=== PATIENT | female | born 1975 | race Caucasian/White ===

== ENCOUNTER 2017-12-29 14:08 | Observation (INO) | payer OTHER ==
[2017-12-29] MEDS ORDERED: KETOROLAC 30 MG/ML 1 ML VIAL IVP STA (14:21)
[2017-12-29] MEDS ORDERED: SODIUM CHLORIDE 0.9% 1,000 ML IV STA ×2 (14:21)
[2017-12-29] MEDS ORDERED: METOCLOPRAMIDE 5 MG/ML 2 ML VIAL IVP STA (14:21)
[2017-12-29] MEDS ORDERED: PANTOPRAZOLE 40 MG/10 ML VIAL IVP STA (14:21)
[2017-12-29 14:55] LABS: ALT 22 U/L (9-52); AST 17 U/L (14-36); Albumin 4.3 g/dL (3.5-5.0); Alkaline Phosphatase 47 U/L (38-126); Amylase 55 U/L (30-110); Anion Gap 12 mmol/L; Blood Urea Nitrogen 17 mg/dL (7-17); Calcium 9.3 mg/dL (8.4-10.2); Carbon Dioxide 27 mmol/L (22-30); Chloride 103 mmol/L (98-107); Glucose 108 mg/dL (74-99); Lipase 81 U/L (23-300); Potassium 4.3 mmol/L (3.5-5.1); Sodium 142 mmol/L (137-145); Total Bilirubin 0.6 mg/dL (0.2-1.3); Total Protein 6.6 g/dL (6.3-8.2)
[2017-12-29 15:06] LABS: Appearance,Urine Cloudy (Clear); Bilirubin,Urine Negative (Negative); Blood,Urine Negative (Negative); Color,Urine Yellow; Glucose,Urine (UA) Negative (Negative); Ketones,Urine Negative (Negative); Leukocyte Esterase,Urine Negative (Negative); Mucus,Urine Rare /hpf; Nitrite,Urine Negative (Negative); Protein,Urine Negative (Negative); RBC,Urine <1 /hpf (0-5); Specific Gravity,Urine 1.015 (1.001-1.035); Squamous Epithelial Cell,Urine 4 /hpf (0-4); Urobilinogen,Urine <2.0 mg/dL (<2.0); WBC,Urine 1 /hpf (0-5)
[2017-12-29 15:09] LABS: Basophils % (A) 1 %; Eosinophils # (A) 0.1 k/uL (0-0.7); Eosinophils % (A) 2 %; HCT 22.2 % (34.0-46.0); Hypochromasia Marked; Lymphocytes # (A) 0.9 k/uL (1.0-4.8); Lymphocytes % (A) 29 %; MCH 21.5 pg (25.0-35.0); MCHC 29.8 g/dL (31.0-37.0); MCV 72.1 fL (80.0-100.0); Mean Platelet Volume 9.1; Microcytosis Moderate; Monocytes # (A) 0.2 k/uL (0-1.0); Monocytes % (A) 5 %; Neutrophils % (A) 60 %; Platelet Count 267 k/uL (150-450); Poikilocytosis Moderate; RBC 3.09 m/uL (3.80-5.40); WBC 3.3 k/uL (3.8-10.6)
[2017-12-29 15:19] LABS: HGB 6.6 gm/dL (11.4-16.0)
--- NOTE | 2017-12-29 15:30 | XR ---
EXAMINATION TYPE: XR abdomen acute w cxr DATE OF EXAM: 12/29/2017 CLINICAL HISTORY: Abdominal pain with diarrhea and vomiting. TECHNIQUE: Single frontal view of chest is obtained. Supine and upright views of the abdomen are acq uired. COMPARISON: Chest x-ray and abdominal x-ray August 10, 2017. FINDINGS: The lungs are grossly clear without pleural effusion or pneumothorax. Cardiac silhouette size appears within normal limits. Osseous structures are intact. Gas is noted in nondistended stomach and small bowel loops. Gas and fecal material is seen in nondis tended colon and rectum. Scattered pelvic phleboliths are redemonstrated. No pneumoperitoneum is iden tified. No visceromegaly or suspicious calcification is seen. Visualized osseous structures are intac t. IMPRESSION: 1. No acute pulmonary process. 2. Overall nonspecific but likely nonobstructive bowel gas pattern.
--- NOTE | 2017-12-29 15:55 | ED ---
General Adult HPI - General Chief complaint: Abdominal Pain Stated complaint: dizziness/body ches Time Seen by Provider: 12/29/17 14:15 Source: patient Mode of arrival: wheelchair Limitations: no limitations - History of Present Illness Initial comments: This 42-year-old white female presents with a complaint of some diffuse myalgias , dizziness, abdominal pain, and headache. She states that this feels very similar to when she was anemic previously. She states that she was hospitalized last year at [facility] and had a large workup through GI and hematology. She apparently did have endoscopies was also found to be iron deficient. She apparently had an iron transfusion at that time but none since. She states that the oral iron pills do not work for her. She relates that the poultry picker did find that she had a polyp in her colon but no other acute abnormalities were identified. She states that the abdominal pain is more in the midepigastric region. She also complains of significant nausea and vomiting. She's been able to keep fluids down but no food for the last 4 days. She does relate that she currently is on her period and normally does have fairly heavy periods. She denies any other complaints or modifying factors. She denies any fevers, chills, chest pain, or shortness of breath. She does feel weak at times. - Related Data Home Medications Medication Instructions Recorded Confirmed DULoxetine HCL [Cymbalta] 60 mg PO DAILY 06/26/15 12/29/17 Albuterol Inhaler [Ventolin Hfa 2 puff INHALATION RT-Q6H PRN 12/29/17 12/29/17 Inhaler] Omeprazole [PriLOSEC] 20 mg PO DAILY 12/29/17 12/29/17 Ondansetron Odt [Zofran ODT] 4 mg PO BID PRN 12/29/17 12/29/17 Propranolol [Inderal] 10 mg PO BID 12/29/17 12/29/17 traMADol HCl [Ultram] 50 mg PO TID PRN 12/29/17 12/29/17 Allergies Allergy/AdvReac Type Severity Reaction Status Date / Time No Known Allergies Allergy Verified 12/29/17 14:32 Review of Systems ROS Statement: Those systems with pertinent positive or pertinent negative responses have been documented in the HPI. ROS Other: All systems not noted in ROS Statement are negative. Past Medical History Past Medical History: No Reported History Additional Past Medical History / Comment(s): vertigo, iron deficiency History of Any Multi-Drug Resistant Organisms: None Reported Past Surgical History: Section Additional Past Surgical History / Comment(s): kidney stone removed Past Psychological History: Anxiety, Depression Smoking Status: Current every day smoker Past Alcohol Use History: None Reported Past Drug Use History: Marijuana General Exam - General Exam Comments Initial Comments: GENERAL: The patient is well nourished and well hydrated. VITAL SIGNS: Heart rate, blood pressure, respiratory rate reviewed as recorded in nurse's notes. EYES: Pupils are round and reactive. Extraocular movements are intact. No conjunctival / lid redness or swelling. ENT: No external evidence of injury, swelling, or ecchymosis. Airway is patent. Throat is clear. NECK: Nontender. No swelling or evidence of injury. No subcutaneous emphysema. Trachea is midline. No thyroid mass. HEART: Regular rate and rhythm. Good peripheral pulses. LUNGS/CHEST: Breath sounds clear and equal bilaterally. No rales, rhonchi, or wheezes. No ecchymosis, subcutaneous emphysema, or tenderness. ABDOMEN: There is mild tenderness noted in the midepigastric region. No palpable masses or organomegaly. No peritoneal signs. No abdominal wall swelling or ecchymosis. EXTREMITIES: No extremity tenderness. Normal muscle tone and function. No thoracolumbar tenderness. NEUROLOGIC: Sensation is grossly intact. Cranial nerve exam reveals face is symmetrical, tongue is midline, speech is clear. SKIN: No abrasions or ecchymosis is noted. No induration or masses noted. PSYCHIATRIC: Alert and oriented. Appropriate behavior and judgment. Rectal exam: No gross blood identified, good rectal tone, stool noted in rectal vault. Limitations: no limitations Course Vital Signs 12/29/17 12/29/17 12/29/17 14:12 15:38 16:13 Temperature 98.5 F Pulse Rate 94 74 76 Respiratory 18 18 18 Rate Blood Pressure 98/57 90/49 98/61 O2 Sat by Pulse 100 100 99 Oximetry Medical Decision Making - Medical Decision Making The patient was seen and examined. All diagnostics were reviewed. An IV is started and she does receive some Toradol as well as some Protonix intravenously. She states that she is nausea and vomiting as well and received Zofran 8 mg. She has alleviation of the nausea but not the pain and therefore received some Ofirmev. She had an x-ray of the abdomen done which does not show any acute processes per radiology. The laboratory came back showing an anemia with hemoglobin of 6.6. The previous hemoglobin is 11.7 and April 2017. She also has a leukopenia. The remainder of labs are essentially within normal limits. Hemoccult is completed and is negative. Her history, she may have a significant iron deficiency anemia. Other causes are possible as well. It is felt as though she would benefit from admission for further treatment. She certainly is symptomatic with her anemia. Case was discussed with Dr. Watts and he is agreeable to admission. He would like a serum test completed as well. - Lab Data Result diagrams: 12/29/17 14:31 12/29/17 14:31 Lab Results 12/29/17 12/29/17 12/29/17 Range/Units 14:31 14:31 14:31 WBC 3.3 L (3.8-10.6) k/uL RBC 3.09 L (3.80-5.40) m/uL Hgb 6.6 L* (11.4-16.0) gm/dL Hct 22.2 L (34.0-46.0) % MCV 72.1 L (80.0-100.0) fL MCH 21.5 L (25.0-35.0) pg MCHC 29.8 L (31.0-37.0) g/dL RDW 15.0 (11.5-15.5) % Plt Count 267 (150-450) k/uL Neutrophils % 60 % Lymphocytes % 29 % Monocytes % 5 % Eosinophils % 2 % Basophils % 1 % Neutrophils # 2.0 (1.3-7.7) k/uL Lymphocytes # 0.9 L (1.0-4.8) k/uL Monocytes # 0.2 (0-1.0) k/uL Eosinophils # 0.1 (0-0.7) k/uL Basophils # 0.0 (0-0.2) k/uL Hypochromasia Marked Poikilocytosis Moderate Microcytosis Moderate Sodium 142 (137-145) mmol/L Potassium 4.3 (3.5-5.1) mmol/L Chloride 103 (98-107) mmol/L Carbon Dioxide 27 (22-30) mmol/L Anion Gap 12 mmol/L BUN 17 (7-17) mg/dL Creatinine 0.69 (0.52-1.04) mg/dL Est GFR (CKD-EPI)AfAm >90 (>60 ml/min/1.73 sqM) Est GFR (CKD-EPI)NonAf >90 (>60 ml/min/1.73 sqM) Glucose 108 H (74-99) mg/dL Calcium 9.3 (8.4-10.2) mg/dL Total Bilirubin 0.6 (0.2-1.3) mg/dL AST 17 (14-36) U/L ALT 22 (9-52) U/L Alkaline Phosphatase 47 (38-126) U/L Total Protein 6.6 (6.3-8.2) g/dL Albumin 4.3 (3.5-5.0) g/dL Amylase 55 (30-110) U/L Lipase 81 (23-300) U/L Urine Color Urine Appearance (Clear) Urine pH (5.0-8.0) Ur Specific [place] (1.001-1.035) Urine Protein (Negative) Urine Glucose (UA) (Negative) Urine Ketones (Negative) Urine Blood (Negative) Urine Nitrite (Negative) Urine Bilirubin (Negative) Urine Urobilinogen (<2.0) mg/dL Ur Leukocyte Esterase (Negative) Urine RBC (0-5) /hpf Urine WBC (0-5) /hpf Ur Squamous Epith Cells (0-4) /hpf Urine Mucus (None) /hpf Urine HCG, Qual Not Detected (Not Detectd) Stool Occult Blood (Negative) Blood Type Blood Type Confirm Blood Type Recheck Antibody Screen Crossmatch Spec Expiration Date 12/29/17 12/29/17 12/29/17 Range/Units 14:31 14:31 15:42 WBC (3.8-10.6) k/uL RBC (3.80-5.40) m/uL Hgb (11.4-16.0) gm/dL Hct (34.0-46.0) % MCV (80.0-100.0) fL MCH (25.0-35.0) pg MCHC (31.0-37.0) g/dL RDW (11.5-15.5) % Plt Count (150-450) k/uL Neutrophils % % Lymphocytes % % Monocytes % % Eosinophils % % Basophils % % Neutrophils # (1.3-7.7) k/uL Lymphocytes # (1.0-4.8) k/uL Monocytes # (0-1.0) k/uL Eosinophils # (0-0.7) k/uL Basophils # (0-0.2) k/uL Hypochromasia Poikilocytosis Microcytosis Sodium (137-145) mmol/L Potassium (3.5-5.1) mmol/L Chloride (98-107) mmol/L Carbon Dioxide (22-30) mmol/L Anion Gap mmol/L BUN (7-17) mg/dL Creatinine (0.52-1.04) mg/dL Est GFR (CKD-EPI)AfAm (>60 ml/min/1.73 sqM) Est GFR (CKD-EPI)NonAf (>60 ml/min/1.73 sqM) Glucose (74-99) mg/dL Calcium (8.4-10.2) mg/dL Total Bilirubin (0.2-1.3) mg/dL AST (14-36) U/L ALT (9-52) U/L Alkaline Phosphatase (38-126) U/L Total Protein (6.3-8.2) g/dL Albumin (3.5-5.0) g/dL Amylase (30-110) U/L Lipase (23-300) U/L Urine Color Yellow Urine Appearance Cloudy H (Clear) Urine pH 7.0 (5.0-8.0) Ur Specific [place] 1.015 (1.001-1.035) Urine Protein Negative (Negative) Urine Glucose (UA) Negative (Negative) Urine Ketones Negative (Negative) Urine Blood Negative (Negative) Urine Nitrite Negative (Negative) Urine Bilirubin Negative (Negative) Urine Urobilinogen <2.0 (<2.0) mg/dL Ur Leukocyte Esterase Negative (Negative) Urine RBC <1 (0-5) /hpf Urine WBC 1 (0-5) /hpf Ur Squamous Epith Cells 4 (0-4) /hpf Urine Mucus Rare H (None) /hpf Urine HCG, Qual (Not Detectd) Stool Occult Blood Negative (Negative) Blood Type A Positive Blood Type Confirm Blood Type Recheck CABO Indicated Antibody Screen NEGATIVE Crossmatch See Detail Spec Expiration Date 01/01/2018 - 233012/29/17 Range/Units 16:20 WBC (3.8-10.6) k/uL RBC (3.80-5.40) m/uL Hgb (11.4-16.0) gm/dL Hct (34.0-46.0) % MCV (80.0-100.0) fL MCH (25.0-35.0) pg MCHC (31.0-37.0) g/dL RDW (11.5-15.5) % Plt Count (150-450) k/uL Neutrophils % % Lymphocytes % % Monocytes % % Eosinophils % % Basophils % % Neutrophils # (1.3-7.7) k/uL Lymphocytes # (1.0-4.8) k/uL Monocytes # (0-1.0) k/uL Eosinophils # (0-0.7) k/uL Basophils # (0-0.2) k/uL Hypochromasia Poikilocytosis Microcytosis Sodium (137-145) mmol/L Potassium (3.5-5.1) mmol/L Chloride (98-107) mmol/L Carbon Dioxide (22-30) mmol/L Anion Gap mmol/L BUN (7-17) mg/dL Creatinine (0.52-1.04) mg/dL Est GFR (CKD-EPI)AfAm (>60 ml/min/1.73 sqM) Est GFR (CKD-EPI)NonAf (>60 ml/min/1.73 sqM) Glucose (74-99) mg/dL Calcium (8.4-10.2) mg/dL Total Bilirubin (0.2-1.3) mg/dL AST (14-36) U/L ALT (9-52) U/L Alkaline Phosphatase (38-126) U/L Total Protein (6.3-8.2) g/dL Albumin (3.5-5.0) g/dL Amylase (30-110) U/L Lipase (23-300) U/L Urine Color Urine Appearance (Clear) Urine pH (5.0-8.0) Ur Specific [place] (1.001-1.035) Urine Protein (Negative) Urine Glucose (UA) (Negative) Urine Ketones (Negative) Urine Blood (Negative) Urine Nitrite (Negative) Urine Bilirubin (Negative) Urine Urobilinogen (<2.0) mg/dL Ur Leukocyte Esterase (Negative) Urine RBC (0-5) /hpf Urine WBC (0-5) /hpf Ur Squamous Epith Cells (0-4) /hpf Urine Mucus (None) /hpf Urine HCG, Qual (Not Detectd) Stool Occult Blood (Negative) Blood Type Blood Type Confirm A Positive Blood Type Recheck Antibody Screen Crossmatch Spec Expiration Date Disposition Clinical Impression: Myalgia, Abdominal pain, Nausea and vomiting, Weakness, Headache, Symptomatic anemia, Dizziness Disposition: ADMITTED IP TO THIS [facility] Condition: Fair Is patient prescribed a controlled substance at d/c from ED?: No Time of Disposition: 15:55 Decision Date: 12/29/17 Decision Time: 15:55
[2017-12-29] MEDS ORDERED: ACETAMINOPHEN IV (For NPO) 1,000 MG in EMPTY BAG 1 BAG IVPB ONE (16:00)
[2017-12-29] MEDS ORDERED: ACETAMINOPHEN TAB 325 MG TAB PO PRN (16:18)
[2017-12-29] MEDS ORDERED: NALOXONE 0.4 MG/ML 1 ML VIAL IV PRN (16:18)
[2017-12-29] MEDS ORDERED: METOCLOPRAMIDE 5 MG/ML 2 ML VIAL IVP PRN (16:21)
[2017-12-29] MEDS ORDERED: traMADol 50 MG TAB PO PRN (16:22)
[2017-12-29] MEDS ORDERED: ALBUTEROL NEBULIZED 2.5 MG/3 ML INHALATION PRN (16:22)
[2017-12-29 17:27] LABS: Reticulocyte % 1.2 % (0.5-2.0)
[2017-12-29] MEDS: HYDROcodone/APAP 5-325MG 1 EACH TAB PO PRN ×2 (18:31→22:40)
[2017-12-29] MEDS: PROPRANOLOL 10 MG TAB PO SCH (20:28)
[2017-12-29] MEDS: ONDANSETRON 4 MG/2 ML VIAL IVP PRN (20:37)
[2017-12-30] MEDS: HYDROcodone/APAP 5-325MG 1 EACH TAB PO PRN ×3 (03:22→12:09)
--- NOTE | 2017-12-30 04:30 | HP ---
HISTORY AND PHYSICAL DATE OF SERVICE: 12/29/17 CHIEF COMPLAINT: Dizziness and anemia and abdominal pain. HISTORY OF PRESENT ILLNESS: This 42-year-old woman with a past medical history of anemia, history of vertigo, Caesarean section, kidney stone, anxiety, depression being followed by Dr. Mccall in the outpatient setting is complaining of some diffuse myalgias, dizziness, abdominal pain, headache, and the patient came to [facility]. Hemoglobin was found to be 6.6. The patient was admitted to the hospital further evaluation and treatment. The patient is complaining of heavy menstrual periods. 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 The patient has extensive workup including colonoscopy and EGD and as well as capsule enteroscopy. Apparent polyp was detected, the testing was done in [place]. Results are not available at this time, but however, 2 units transfusion arranged at this time. There is no history of fever, rigors, chills. No history of headache, loss of consciousness, seizures. PAST MEDICAL HISTORY: History of kidney stones, history of anemia, anxiety, depression, extensive workup as mentioned earlier. MEDICATIONS: 1. Inderal 10 mg p.o. b.i.d. 2. Ventolin 2 puffs q.6h p.r.n. 3. Prilosec 20 mg daily. 4. Zofran 4 mg b.i.d. p.r.n. 5. Cymbalta 60 mg p.o. daily. 6. Ultram 50 mg p.o. t.i.d. p.r.n. ALLERGIES: None. FAMILY HISTORY: No history of heart disease or strokes family. SOCIAL HISTORY: History of smoking, history of THC. REVIEW OF SYSTEMS: ENT: No diminished hearing or vision. CARDIOVASCULAR: No angina or palpitations. RESPIRATORY: As mentioned earlier. GI mentioned earlier. no dysuria. Nervous system: No numbness, weakness. Allergy/Immunology: As mentioned earlier. Hematology/Oncology: As mentioned earlier. Endocrine no history of diabetes or hypothyroidism. Constitutional: As mentioned earlier. DERMATOLOGY: Negative. RHEUMATOLOGY: Negative. PSYCHIATRIC: As mentioned earlier. PHYSICAL EXAMINATION: The patient is alert and oriented times three. Pulse 76, blood pressure 101/56, respiration 16, temperature 97.8, pulse ox 99% on room air. HEENT: Conjunctivae pale. Oral mucosa moist. Neck is no jugular venous distention. No carotid bruit. No lymph nodes enlargement. Cardiovascular system: S1, S2 muffled. No S3, no S4. Respiratory: Breath sounds diminished in the bases. No rhonchi. No crackles. ABDOMEN: Soft, nontender. No mass palpable. No guarding. No rigidity. Legs no edema. No swelling. Nervous system: Higher functions as mentioned earlier. Moves all 4 limbs. No focal motor or sensory deficits. Lymphatics: No lymph nodes palpable in the neck, axillae or groin. Skin no ulcer, rash or bleeding. LABS: WBC 3.2, hemoglobin 6.6. ASSESSMENT: 1. Anemia acute on chronic possibly genitourinary blood loss. 2. History of menorrhagia. 3. Previous history of anemia and complete Gastroenterology workup. 4. History of kidney stones. 5. History of anxiety, depression. 6. History of nicotine dependence. RECOMMENDATIONS AND DISCUSSION: In this 42-year-old woman who presented with multiple complex medical issues, we will monitor the patient closely. Continue the current medications, management and symptomatic treatment. RECORDS CLERK evaluation and hematology evaluation has been requested. 2 unit transfusion has been arranged. I would recommend repeat labs in the morning and iron studies also requested. The details of the workup from [place] also requested. We will follow the patient closely. Otherwise prognosis guarded because of multiple complex medical issues. A copy of dictation being forwarded to Dr. Mccall who is the primary physician. MMTEODOROL / LISAN: [id number] /
[2017-12-30 07:51] VITALS: BP 111/68; PULSE 68; RESP 16; TEMP 97.3
[2017-12-30] MEDS: PROPRANOLOL 10 MG TAB PO SCH (07:51)
[2017-12-30] MEDS: ONDANSETRON 4 MG/2 ML VIAL IVP PRN (07:52)
[2017-12-30] MEDS ORDERED: PANTOPRAZOLE 40 MG/10 ML VIAL IV SCH (09:00)
[2017-12-30] MEDS ORDERED: ENOXAPARIN 40 MG/0.4 ML SYRINGE SQ SCH (09:00)
[2017-12-30] MEDS ORDERED: DULoxetine HCL 60 MG CAPSULE.DR PO SCH (09:00)
[2017-12-30 09:08] LABS: Anisocytosis Slight; HCT 28.5 % (34.0-46.0); Hypochromasia Marked; MCH 23.9 pg (25.0-35.0); MCHC 31.3 g/dL (31.0-37.0); MCV 76.4 fL (80.0-100.0); Mean Platelet Volume 8.9; Microcytosis Slight; Platelet Count 213 k/uL (150-450); Poikilocytosis Marked; RBC 3.73 m/uL (3.80-5.40); WBC 3.7 k/uL (3.8-10.6)
[2017-12-30 09:10] LABS: HGB 8.9 gm/dL (11.4-16.0)
[2017-12-30] MEDS ORDERED: SODIUM FERRIC GLUCONAT-SUCROSE 125 MG in SODIUM CHLORIDE 0.9% 100 ML IVPB ONE (09:36)
[2017-12-30 11:03] LABS: Basophils # (M) 0.04 k/uL (0-0.2); Eosinophils # (M) 0.04 k/uL (0-0.7); Lymphocytes # (M) 1.96 k/uL (1.0-4.8); Monocytes # (M) 0.19 k/uL (0-1.0); Neutrophils # (M) 1.48 k/uL (1.3-7.7); Neutrophils % (M) 40 %; Nucleated Red Blood Cells 0 /100 WBC (0-0); Total Cells Counted 100
--- NOTE | 2017-12-30 11:05 | P.OBCN ---
History of Present Illness Consult date: 12/30/17 Reason for consult: menorrhagia Chief complaint: anemia, symptomatic History of present illness: This is a 42-year-old white female 3 para 3003 last menstrual period 03/2018 which ended yesterday. Patient presented to the emergency center with a history of lightheadedness and dizziness, along with muscle aches and stomach pain. She was admitted through the emergency room and noted to have a hemoglobin of 6.6, WBC is 3.3, ferritin decreased. Consultation from the gynecologic standpoint has been requested. 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 She states the periods are always been heavy, with clots approximately the size of golf balls. She has a history of HSV dating back to 2003 but no longer has symptomatic outbreaks. She denies gonorrhea or chlamydia. She states she does have pain to deep penetration at the time of intercourse. Past obstetric history significant for sections 3, with a tubal ligation at the time of the third in 2001. All fetuses healthy. Current medications Cymbalta 60 mg daily, omeprazole 20 mg daily. Past medical history is significant for anxiety. Past surgical history kidney stones removed in 2004, C-sections 3 as noted above. Social history patient admits to one half pack per day tobacco for approximate 25 years. She quit all alcohol consumption 7 months ago. She denies marijuana use but has a tattoo of a marijuana leave in her left arm. She is single, unemployed. She denies other illicit drug use. Family history mother passed at age 65 of a cardiac . Her father is alive in his late 60s, patient states she he is a heavy drinker but otherwise healthy. ALLERGIES none known. On exam this is a pleasant white female, 5 foot 6 inches 140 pounds blood pressure 111/68, pulse 68, respirations 16, temperature 97.3, 99% O2 saturation on room air. General physical exam is significant for poor dentition, 5 tattoos , pierced ears nose and belly button. HEENT examination is otherwise negative, no thyromegaly, no cervical lymphadenopathy. The chest is clear to auscultation in all [place] anteriorly and posteriorly. The cardiac exam reveals regular rate and rhythm with no murmur click or rub. Breasts are bilaterally symmetric to inspection with no skin dimpling, nipple discharge, axillary adenopathy, or discernible lesions or masses. Abdomen is soft and nontender, patient is mildly tender in the suprapubic region. No rebound or guarding. Active bowel sounds. No CVA tenderness. Extremities reveal no edema , there are good peripheral pulses. On pelvic exam the cervix is firm to palpation. The uterus is small, mobile, anteverted with no obvious fibroids. Adnexa are negative bilaterally with no ovarian masses or pain. Rectal exam reveals fit Is up by T negative stool as noted in the ER, no obvious masses or tumors. Labs include hemoglobin 6.6 hematocrit 22.2 on admission with a white count of 3.3, platelets 267,000. Patient has received 2 units of packed red blood cells and recent hemoglobin is 8.9, hematocrit 28.5, platelets 213,000, white cells 3.7. Impression: Symptomatic anemia with a history of menorrhagia. Pelvic examination at this time is within normal limits and patient has received 2 units of packed red blood cells. She denies symptomatology at this time. 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 Consideration for D&C will be made pending findings sonographically. Thank you for this consultation, will follow. Review of Systems Constitutional: Reports as per HPI, Reports fatigue, Reports malaise Past Medical History Past Medical History: No Reported History Additional Past Medical History / Comment(s): vertigo, iron deficiency History of Any Multi-Drug Resistant Organisms: None Reported Past Surgical History: Section Additional Past Surgical History / Comment(s): kidney stone removed Past Anesthesia/Blood Transfusion Reactions: No Reported Reaction Past Psychological History: Anxiety, Depression Smoking Status: Current every day smoker Past Alcohol Use History: None Reported Medications and Allergies Home Medications Medication Instructions Recorded Confirmed Type DULoxetine HCL [Cymbalta] 60 mg PO DAILY 06/26/15 12/29/17 History Albuterol Inhaler [Ventolin Hfa 2 puff INHALATION RT-Q6H PRN 12/29/17 12/29/17 History Inhaler] Omeprazole [PriLOSEC] 20 mg PO DAILY 12/29/17 12/29/17 History Ondansetron Odt [Zofran ODT] 4 mg PO BID PRN 12/29/17 12/29/17 History Propranolol [Inderal] 10 mg PO BID 12/29/17 12/29/17 History traMADol HCl [Ultram] 50 mg PO TID PRN 12/29/17 12/29/17 History Allergies Allergy/AdvReac Type Severity Reaction Status Date / Time No Known Allergies Allergy Verified 12/29/17 14:32 Exam - Vital Signs Vital signs: Vital Signs Temp Pulse Pulse Resp BP BP Pulse Ox 12/30/17 07:00 97.3 F L 68 16 111/68 99 12/30/17 01:30 97.4 F L 78 18 106/62 98 12/29/17 23:00 97.7 F 74 18 97/55 100 12/29/17 22:30 97.8 F 76 16 101/56 99 12/29/17 22:15 97.1 F L 81 18 98/51 98 12/29/17 22:10 97.1 F L 76 80 18 101/56 98/51 99 12/29/17 18:42 97.6 F 83 83 16 101/56 110/75 98 12/29/17 18:12 83 12 118/66 12/29/17 18:02 98 F 73 16 122/67 12/29/17 16:13 76 18 98/61 99 12/29/17 15:38 74 18 90/49 100 12/29/17 14:12 98.5 F 94 18 98/57 100 Intake and Output 12/29/17 12/30/17 12/30/17 22:59 06:59 14:59 Intake Total 650 550 Balance 650 550 Intake: Oral 340 240 Blood Product 310 310 Rc As-1 Unit 0 310 [id number] Rc As-1 Unit 310 [id number] Other: # Voids 2 1 Weight 63.503 kg See dictation under HPI please Results Result Diagrams: 12/30/17 08:10 12/29/17 14:31 Abnormal Lab Results - Last 24 Hours (Table) 12/29/17 12/29/17 12/29/17 Range/Units 14:31 14:31 14:31 WBC 3.3 L (3.8-10.6) k/uL RBC 3.09 L (3.80-5.40) m/uL Hgb 6.6 L* (11.4-16.0) gm/dL Hct 22.2 L (34.0-46.0) % MCV 72.1 L (80.0-100.0) fL MCH 21.5 L (25.0-35.0) pg MCHC 29.8 L (31.0-37.0) g/dL RDW (11.5-15.5) % Lymphocytes # 0.9 L (1.0-4.8) k/uL Glucose 108 H (74-99) mg/dL Ferritin (10.0-291.0) ng/mL Urine Appearance Cloudy H (Clear) Urine Mucus Rare H (None) /hpf Crossmatch 12/29/17 12/29/17 12/30/17 Range/Units 14:31 14:31 08:10 WBC 3.7 L (3.8-10.6) k/uL RBC 3.73 L (3.80-5.40) m/uL Hgb 8.9 L D (11.4-16.0) gm/dL Hct 28.5 L (34.0-46.0) % MCV 76.4 L (80.0-100.0) fL MCH 23.9 L (25.0-35.0) pg MCHC (31.0-37.0) g/dL RDW 16.0 H (11.5-15.5) % Lymphocytes # (1.0-4.8) k/uL Glucose (74-99) mg/dL Ferritin 2.3 L (10.0-291.0) ng/mL Urine Appearance (Clear) Urine Mucus (None) /hpf Crossmatch See Detail Assessment and Plan Assessment: Symptomatic anemia, improved after 2 units of packed red blood cells. History of menorrhagia, normal examination of the pelvis at the bedside. Plan: Pelvic ultrasound to assess endometrial thickness. We will proceed with D&C if thickness is noted to be abnormal. Risks and benefits of D&C are described briefly. Time with Patient: Greater than 30
[2017-12-30 11:06] LABS: Target Cells Present
--- NOTE | 2017-12-30 13:02 | US ---
EXAMINATION TYPE: US transvaginal DATE OF EXAM: 12/30/2017 COMPARISON: NONE CLINICAL HISTORY: endometrial thickness. . low iron and hemoglobin, no vaginal bleeding, but heavy c ycles TECHNIQUE: TV. Date of LMP: 12/23/2017 EXAM MEASUREMENTS: Uterus: 9.4 x 5.2 x 5.3 cm Endometrial Stripe: 1.0 cm Right Ovary: 3.5 x 2.6 x 3.0 cm Left Ovary: 2.4 x 1.2 x 1.8 cm 1. Uterus: Retroverted wnl 2. Endometrium: wnl 3. Right Ovary: multiple anechoic area seen, largest appears septated and = 1.5cm 4. Left Ovary: 2 anechoic areas seen, largest = 2.0cm 5. Bilateral Adnexa: mild free fluid in right adnexa 6. Posterior cul-de-sac: mild free fluid IMPRESSION: 1. Endometrial thickness is within normal limits for a premenopausal female. 2. Multiple right ovarian follicles with the most complex appearing 1.5 cm and containing a single th ick septation and additional thin septation. Considering this thick septation short-term follow-up is recommended to ensure resolution in 3 menstrual cycles. 3. Small volume free fluid in the right adnexa and posterior cul-de-sac that may represent sequela of a recently cyst.
--- NOTE | 2017-12-30 14:39 | P.DS ---
Providers Date of admission: 12/29/17 16:18 Attending physician: Toño Watts MD Consults: 12/29/17 16:20 Consult Physician Urgent Consulting Provider: Altaf Woodson Consult Reason/Comments: anemia Do you want consulting provider notified?: Yes 12/29/17 18:28 Consult Physician Routine Consulting Provider: Elenita Mejia Consult Reason/Comments: heavy menstrual cycle, hemoglobin 6.6 Do you want consulting provider notified?: Yes Primary care physician: Stefany Shepherd [facility] Course: Patient was admitted for symptomatically anemia severe lethargy which completed resolved with the blood transfusion, hemoglobin improved from 6.6-8.5 today with 2 units of blood transfusion which is an appropriate response. Patient has menorrhagia because of which the gynecology evaluated the patient and they will follow her as an outpatient pelvic ultrasound did not show any endometrial thickening. Patient has severe iron deficiency anemia with ferritin of around 2.5 will require IV iron transfusions which will be taken care of by hematology clinic. Also discharging her on oral iron supplementation side effects of oral iron supplementation were discussed with the patient and if patient gets constipated can take [id number] medications for constipation. There is no evidence of GI bleed clinically at this time. PHYSICAL EXAMINATION: GENERAL: The patient is alert and oriented x3, not in any acute distress. Well developed, well nourished. HEENT: Pupils are round and equally reacting to light. EOMI. No scleral icterus. No conjunctival pallor. Normocephalic, atraumatic. No pharyngeal erythema. No thyromegaly. CARDIOVASCULAR: S1 and S2 present. No murmurs, rubs, or gallops. PULMONARY: Chest is clear to auscultation, no wheezing or crackles. ABDOMEN: Soft, nontender, nondistended, normoactive bowel sounds. No palpable organomegaly. MUSCULOSKELETAL: No joint swelling or deformity. EXTREMITIES: No cyanosis, clubbing, or pedal edema. NEUROLOGICAL: Gross neurological examination did not reveal any focal deficits. SKIN: No rashes. -Acute on chronic blood loss anemia iron deficiency anemia -Menorrhagia patient will follow-up with gynecology as an outpatient [employer]AD evaluated the patient here -Depression -Nicotine dependence: Counseling was provided Patient Condition at Discharge: Fair Plan - Discharge Summary Discharge Rx Participant: No New Discharge Prescriptions: New Ferrous Sulfate [Feosol] 325 mg PO BID #60 tab No Action DULoxetine HCL [Cymbalta] 60 mg PO DAILY traMADol HCl [Ultram] 50 mg PO TID PRN PRN Reason: Pain Propranolol [Inderal] 10 mg PO BID Omeprazole [PriLOSEC] 20 mg PO DAILY Albuterol Inhaler [Ventolin Hfa Inhaler] 2 puff INHALATION RT-Q6H PRN PRN Reason: Shortness Of Breath Ondansetron Odt [Zofran ODT] 4 mg PO BID PRN PRN Reason: Nausea Discharge Medication List DULoxetine HCL [Cymbalta] 60 mg PO DAILY 06/26/15 [History] Albuterol Inhaler [Ventolin Hfa Inhaler] 2 puff INHALATION RT-Q6H PRN 12/29/17 [ History] Omeprazole [PriLOSEC] 20 mg PO DAILY 12/29/17 [History] Ondansetron Odt [Zofran ODT] 4 mg PO BID PRN 12/29/17 [History] Propranolol [Inderal] 10 mg PO BID 12/29/17 [History] traMADol HCl [Ultram] 50 mg PO TID PRN 12/29/17 [History] Ferrous Sulfate [Feosol] 325 mg PO BID #60 tab 12/30/17 [Rx] Follow up Appointment(s)/Referral(s): Alatf Woodson MD [STAFF PHYSICIAN] - 01/29/18 10:15 am Joao Mccall MD [Primary Care Provider] - 01/06/18 2:00 pm Elenita Mejia MD [STAFF PHYSICIAN] - 1 Week (message left at office. patient to make self appointment. ) Patient Instructions/Handouts: Anemia (DC) Discharge Disposition: HOME SELF-CARE
--- NOTE | 2017-12-30 15:29 | P.CONS ---
History of Present Illness - Reason for Consult Consult date: 12/30/17 iron deficient anemia Requesting physician: Joe Cole - Chief Complaint weakness - History of Present Illness Mrs. Garcia is a very pleasant 42-year-old female who states a long history of anemia (years). Patient has had very heavy menses on a monthly basis wher whole life, she states she can use up to 23 pads for a cycle. Patient was initially diagnosed with iron deficiency last year at [facility]. Patient was provided with parenteral iron and started on oral, which she could not tolerate due to gastrointestinal upset, she also had difficulty following up due to transportation. She is unsure when her last iron infusion was, either last year or in [place] of this year. Patient had a colonoscopy and EGD in September 2016 at [place], she states no abnormalities. Patient does not currently follow with a [employer]. She has had control in the past to control menstral bleeding but, she states this was stopped due to weight gain. Currently, patient feels well, she is status post 2 units of packed red blood cells. She denies fevers, tolerating oral intake, no nausea or vomiting, no shortness of breath, chest pain, palpitations, no other bleeding to report, not currently menstruating. She does get tired and fatigued easily, she denies inability to manage ADLs or IADLs, not requiring any assistance. Review of Systems 10 point ROS as stated in HPI Past Medical History Past Medical History: No Reported History Additional Past Medical History / Comment(s): vertigo, iron deficiency History of Any Multi-Drug Resistant Organisms: None Reported Past Surgical History: Section Additional Past Surgical History / Comment(s): kidney stone removed Past Anesthesia/Blood Transfusion Reactions: No Reported Reaction Past Psychological History: Anxiety, Depression Smoking Status: Current every day smoker Past Alcohol Use History: None Reported, Unable to Obtain Past Drug Use History: Unable to Obtain - Past Family History Mother Family Medical History: No Reported History Medications and Allergies Home Medications Medication Instructions Recorded Confirmed Type DULoxetine HCL [Cymbalta] 60 mg PO DAILY 06/26/15 12/29/17 History Albuterol Inhaler [Ventolin Hfa 2 puff INHALATION RT-Q6H PRN 12/29/17 12/29/17 History Inhaler] Omeprazole [PriLOSEC] 20 mg PO DAILY 12/29/17 12/29/17 History Ondansetron Odt [Zofran ODT] 4 mg PO BID PRN 12/29/17 12/29/17 History Propranolol [Inderal] 10 mg PO BID 12/29/17 12/29/17 History traMADol HCl [Ultram] 50 mg PO TID PRN 12/29/17 12/29/17 History Ferrous Sulfate [Feosol] 325 mg PO BID #60 tab 12/30/17 Rx Allergies Allergy/AdvReac Type Severity Reaction Status Date / Time No Known Allergies Allergy Verified 12/29/17 14:32 Physical Exam Vitals: Vital Signs Temp Pulse Pulse Resp BP BP Pulse Ox 12/30/17 07:00 97.3 F L 68 16 111/68 99 12/30/17 01:30 97.4 F L 78 18 106/62 98 12/29/17 23:00 97.7 F 74 18 97/55 100 12/29/17 22:30 97.8 F 76 16 101/56 99 12/29/17 22:15 97.1 F L 81 18 98/51 98 12/29/17 22:10 97.1 F L 76 80 18 101/56 98/51 99 12/29/17 18:42 97.6 F 83 83 16 101/56 110/75 98 12/29/17 18:12 83 12 118/66 12/29/17 18:02 98 F 73 16 122/67 12/29/17 16:13 76 18 98/61 99 12/29/17 15:38 74 18 90/49 100 Intake and Output 12/30/17 12/30/17 12/30/17 06:59 14:59 22:59 Intake Total 550 Balance 550 Intake: Oral 240 Blood Product 310 Rc As-1 Unit 310 [id number] Other: # Voids 1 3 Weight 63.503 kg - Constitutional General appearance: average body habitus, cooperative, no acute distress - EENT Eyes: anicteric sclerae, EOMI, PERRLA, normal appearance - Neck Neck: no lymphadenopathy - Respiratory Respiratory: bilateral: CTA - Cardiovascular Rhythm: regular Heart sounds: normal: S1, S2 Abnormal Heart Sounds: no systolic murmur, no diastolic murmur, no rub, no S3 Gallop, no S4 Gallop, no click, no other leg Peripheral Edema: bilateral: None - Gastrointestinal General gastrointestinal: no absent bowel sounds, no decreased bowel sounds, no distended, no hepatomegaly, no hyperactive bowel sounds, normal bowel sounds, no organomegaly, no rigid, no scaphoid, soft, no splenomegaly, no tenderness, no umbilical hernia, no ventral hernia - Neurologic Neurologic: CNII-XII intact - Musculoskeletal Musculoskeletal: strength equal bilaterally - Psychiatric Psychiatric: A&O x's 3, appropriate affect, intact judgment & insight Results CBC & Chem 7: 12/30/17 08:10 12/29/17 14:31 Labs: Abnormal Lab Results - Last 24 Hours (Table) 12/29/17 12/29/17 12/29/17 Range/Units 14:31 14:31 14:31 WBC 3.3 L (3.8-10.6) k/uL RBC 3.09 L (3.80-5.40) m/uL Hgb 6.6 L* (11.4-16.0) gm/dL Hct 22.2 L (34.0-46.0) % MCV 72.1 L (80.0-100.0) fL MCH 21.5 L (25.0-35.0) pg MCHC 29.8 L (31.0-37.0) g/dL RDW (11.5-15.5) % Lymphocytes # 0.9 L (1.0-4.8) k/uL Transferrin (204.0-354.0) mg/dL Ferritin 2.3 L (10.0-291.0) ng/mL Crossmatch See Detail 12/29/17 12/30/17 Range/Units 14:31 08:10 WBC 3.7 L (3.8-10.6) k/uL RBC 3.73 L (3.80-5.40) m/uL Hgb 8.9 L D (11.4-16.0) gm/dL Hct 28.5 L (34.0-46.0) % MCV 76.4 L (80.0-100.0) fL MCH 23.9 L (25.0-35.0) pg MCHC (31.0-37.0) g/dL RDW 16.0 H (11.5-15.5) % Lymphocytes # (1.0-4.8) k/uL Transferrin 388.0 H (204.0-354.0) mg/dL Ferritin (10.0-291.0) ng/mL Crossmatch Assessment and Plan (1) Iron deficiency anemia Narrative/Plan: Pt has had GI work up in the last year. Her menses is heavy and the likely cause of her iron deficiency. She has been seen and evaluated by ObGyn. From Hem standpoint pt will be given a STAT dose of parenteral iron, further doses can be administered in the outpatient setting. Advised pt to have more routine follow up so that her anemia can be better managed. She agreed, appt made for follow up. Status: Chronic Priority: Medium Code(s): D50.9 - IRON DEFICIENCY ANEMIA, UNSPECIFIED SNOMED Code(s): 56751260 (2) Symptomatic anemia Narrative/Plan: S/P 2 units, pt feels much better Status: Acute Priority: Medium Code(s): D64.9 - ANEMIA, UNSPECIFIED SNOMED Code(s): 437340507
[2017-12-30 16:32] LABS: Iron Saturation 21.2 (12.00-45.00)
[2017-12-31] MEDS ORDERED: PANTOPRAZOLE 40 MG TABLET PO SCH (07:30)
== END 2017-12-30 14:47 | disposition home or self-care (01) ==
LOC: EC 14:08 → 4MS4W 16:18 → INTOOBSV 16:18 → UNDODISIN 12-30 14:47
PROVIDERS: ADMIT Internal Medicine; ATTEND Internal Medicine
PROC: 30233N1 Transfusion of Nonautologous Red Blood Cells into Peripheral Vein, Percutaneous Approach (ICD-10-PCS; principal; 2017-12-29)
DX: D50.9 Iron deficiency anemia, unspecified (principal); D62 Acute posthemorrhagic anemia; R10.13 Epigastric pain; R11.2 Nausea with vomiting, unspecified; D72.819 Decreased white blood cell count, unspecified; N92.0 Excessive and frequent menstruation with regular cycle; F32.9 Major depressive disorder, single episode, unspecified; F41.9 Anxiety disorder, unspecified; F17.210 Nicotine dependence, cigarettes, uncomplicated; Z87.442 Personal history of urinary calculi; Z86.19 Personal history of other infectious and parasitic diseases; Z79.899 Other long term (current) drug therapy; Z82.49 Family history of ischemic heart disease and other diseases of the circulatory system
CPT/HCPCS: 36430; 96376; 96361 ×3; 96365; 96375 ×2; 99285; 36415; 86900; 86901; 83921; 80053; 82607; 82728; 82150; 83540; 83550; 83690; 85025 ×2; 85045; 86850; 86920; 82272; 81001; 81025; 84703; 83090; 84466; 74022; 76830; G0378 ×2; P9016; J2765; J2405 ×2; J1885; J2916; J0131; C9113 ×2; 96374

== ENCOUNTER 2018-02-24 06:20 | Day surgery (SDC) | payer OTHER ==
[2018-02-16 13:17] VITALS: BMI 21.6
[~2018-02-24 06:20] MED LIST: DEXAMETHASONE SOD PHOSPHATE 10 MG/ML 1 ML VIAL IV ONE; HYDROmorphone 0.5 MG/0.5 ML SYRINGE IVP PRN; LACTATED RINGERS 1,000 ML IV SCH; MIDAZOLAM 2 MG/2 ML VIAL IV PRN; ONDANSETRON 4 MG/2 ML VIAL IVP ONE; Pre Op ABX Message 1 EACH MISC MISCELLANE ONE
[2018-02-24] MEDS ORDERED: LACTATED RINGERS 1,000 ML IV ONE (06:40)
[2018-02-24] MEDS ORDERED: LIDOCAINE 1% 20 ML VIAL (10MG/ML) FOR IV START INTRADERMA ONE (06:50)
[2018-02-24] MEDS ORDERED: fentaNYL (PF) 50 MCG/ML 2 ML AMP ONE (07:39)
[2018-02-24] MEDS ORDERED: PROPOFOL 10 MG/ML 20 ML VIAL IV ONE (07:39)
[2018-02-24] MEDS ORDERED: KETOROLAC 30 MG/ML 1 ML VIAL ONE (07:39)
[2018-02-24] MEDS ORDERED: MIDAZOLAM 2 MG/2 ML VIAL ONE (07:39)
[2018-02-24] MEDS ORDERED: LIDOCAINE 1% INJ 10MG/ML (20 ML MDV) ONE (07:39)
--- NOTE | 2018-02-24 08:00 | P.OP ---
Date of Procedure: 02/24/18 Preoperative Diagnosis: Menorrhagia, anemia Postoperative Diagnosis: Same Procedure(s) Performed: Hysteroscopy, NovaSure endometrial ablation Anesthesia: TRA Surgeon: Elenita Mejia Expediter Clerk #1: Stated None Estimated Blood Loss (ml): 5 IV fluids (ml): 400 Urine output (ml): 50 Pathology: none sent Condition: stable Disposition: PACU Operative Findings: Essentially negative appearing uterine cavity. Description of Procedure: Patient is brought to the operating suite where a general anesthetic is administered without difficulty. She's placed in the dorsal lithotomy position. The cervix, vagina, perineal bodies are all prepped and draped in usual sterile fashion. The appropriate timeout is performed. Urine hCG is negative. Weighted speculum was placed into the vagina. Bladder is drained for approximately 50 mL of clear yellow urine. Anterior lip of the cervix is grasped with a double-tooth tenaculum. Uterus sounds to a depth of 9 cm in the retroverted position. Cervix is gently and systematically dilated using Hanks dilators. The hysteroscope was introduced and the cavity is distended with sterile saline. The cavity is inspected, no fibroids polyps tumors or other defects are appreciated. Hysteroscope was removed. NovaSure wand is then placed into the cavity properly seated and calibrated. It is enabled. The machine is then set on, uterine width of 4.3 cm, length of 5.5 cm. 410 seconds with a power of 130 W the procedure is carried out. When it is completed, the wand is reduced and removed. Hysteroscope was once again placed and the cavity is distended. It appears to be uniformly blanched. All instrumentation is removed. Cervix is clean and dry. Toradol is given prior to leaving the operative suite. All sponge needle and enhancement counts are correct. Patient is brought back to the recovery room in very good condition with stable vital signs including 100% O2 saturation, pulse of 72, blood pressure 100/50. She will follow-up with me in the office in 2 weeks.
[2018-02-24 08:09] VITALS: TEMP 99
[2018-02-24 08:22] VITALS: RESP 16
[2018-02-24 09:12] VITALS: BP 118/71; PULSE 80
== END 2018-02-24 09:47 | disposition home or self-care (01) ==
LOC: OR 06:20
PROVIDERS: ATTEND Obstetrics & Gynecology
DX: N92.0 Excessive and frequent menstruation with regular cycle (principal); D64.9 Anemia, unspecified; F41.9 Anxiety disorder, unspecified; K21.9 Gastro-esophageal reflux disease without esophagitis; F17.210 Nicotine dependence, cigarettes, uncomplicated; Z79.899 Other long term (current) drug therapy; Z79.891 Long term (current) use of opiate analgesic; Z98.51 Tubal ligation status
CPT/HCPCS: 81025; 58563; J2250; J1100; J2405; J2001; J3010; J1885; J2704

== ENCOUNTER 2022-07-22 22:13 | Emergency (ER) | payer OTHER ==
--- NOTE | 2022-07-23 00:42 | ED ---
General Adult HPI - General Chief complaint: Skin/Abscess/Foreign Body Stated complaint: Extremity Pain, Dizziness Time Seen by Provider: 07/23/22 00:19 Source: patient, RN notes reviewed Mode of arrival: ambulatory Limitations: no limitations - History of Present Illness Initial comments: Patient presents to the emergency department complaining of generalized body aches, states that her skin feels sensitive. Patient is also had a cough, subjective fever, a bit of a hoarse voice and a mild runny nose. No known exposures. No headache, no fever or chills, no changes in vision or hearing, no sore throat or difficulty with speech, no neck pain, no chest pain or shortness of breath, no abdominal pain, no nausea or vomiting, no changes in urination or bowel movements, no numbness or tingling, no extremity pain, no skin rashes or lesions. Past medical, surgical, social, and family history reviewed. - Related Data Home Medications Medication Instructions Recorded Confirmed DULoxetine HCL [Cymbalta] 60 mg PO DAILY 06/26/15 02/16/18 Omeprazole [PriLOSEC] 20 mg PO DAILY 12/29/17 02/16/18 Ondansetron Odt [Zofran ODT] 4 mg PO BID PRN 12/29/17 02/16/18 traMADol HCl [Ultram] 50 mg PO TID PRN 12/29/17 02/16/18 Allergies Allergy/AdvReac Type Severity Reaction Status Date / Time No Known Allergies Allergy Verified 02/16/18 13:05 Review of Systems ROS Statement: Those systems with pertinent positive or pertinent negative responses have been documented in the HPI. ROS Other: All systems not noted in ROS Statement are negative. Past Medical History Past Medical History: GERD/Reflux Additional Past Medical History / Comment(s): mennorghia, iron deficiency, STATES CHRONIC PAIN History of Any Multi-Drug Resistant Organisms: None Reported Past Surgical History: Section Additional Past Surgical History / Comment(s): kidney stone removed Past Anesthesia/Blood Transfusion Reactions: No Reported Reaction Additional Past Anesthesia/Blood Transfusion Reaction / Comment(s): BLOOD TRANSFUSION WITH NO REACTION Past Psychological History: Anxiety, Depression Past Alcohol Use History: None Reported Past Drug Use History: None Reported - Past Family History Mother Family Medical History: Deep Vein Thrombosis (DVT) General Exam - General Exam Comments Initial Comments: Patient does not appear to be ill or toxic. No skin rash or lesions. Limitations: no limitations General appearance: alert, in no apparent distress Head exam: Present: atraumatic, normocephalic, normal inspection Eye exam: Present: normal appearance, PERRL, EOMI. Absent: scleral icterus, conjunctival injection, periorbital swelling ENT exam: Present: normal exam, mucous membranes moist Neck exam: Present: normal inspection. Absent: tenderness, meningismus, lymphadenopathy Respiratory exam: Present: normal lung sounds bilaterally. Absent: respiratory distress, wheezes, rales, rhonchi, stridor Cardiovascular Exam: Present: regular rate, normal rhythm, normal heart sounds. Absent: systolic murmur, diastolic murmur, rubs, gallop, clicks GI/Abdominal exam: Present: soft, normal bowel sounds. Absent: distended, tenderness, guarding, rebound, rigid Extremities exam: Present: normal inspection, full ROM, normal capillary refill. Absent: tenderness, pedal edema, joint swelling, calf tenderness Back exam: Present: normal inspection Neurological exam: Present: alert, oriented X3, CN II-XII intact Psychiatric exam: Present: normal affect, normal mood Skin exam: Present: warm, dry, intact, normal color. Absent: rash Course Vital Signs 07/22/22 22:15 Temperature 97.8 F Pulse Rate 95 Respiratory 20 Rate Blood Pressure 136/78 O2 Sat by Pulse 95 Oximetry - Reevaluation(s) Reevaluation #1: 07/23/22 01:56 Medical record is reviewed Symptoms are improved here in the emergency department Patient is informed of results and questions answered Patient in no distress Medical Decision Making - Medical Decision Making Patient reevaluated prior to discharge and is resting comfortably in bed. There is no evidence of respiratory distress. Patient does not have a cough. We discussed COVID-19 in detail with the patient tested positive. Quarantine measures discussed in detail. Disease course discussed. She does not appear to have any other complications of this disease. I did consider corticosteroids however the patient has no respiratory distress or respiratory symptomology. We'll forego this at this time. Patient was told to return to the ER for any signs or symptoms worsen. Told to return immediately if any other problems arise. All questions answered. T reatment plan discussed. Patient in agreement Every effort has been made to ensure accuracy of this dictation. However, due to the limitations of electronic medical records and dictation devices, errors in charting still occur. Supervising physician is Dr. King - Lab Data Result diagrams: 07/23/22 01:01 07/23/22 01:01 Lab Results 07/23/22 07/23/22 07/23/22 Range/Units 00:48 00:48 01:01 WBC 3.9 (3.8-10.6) k/uL RBC 3.77 L (3.80-5.40) m/uL Hgb 10.4 L (11.4-16.0) gm/dL Hct 31.4 L (34.0-46.0) % MCV 83.2 (80.0-100.0) fL MCH 27.7 (25.0-35.0) pg MCHC 33.3 (31.0-37.0) g/dL RDW 14.7 (11.5-15.5) % Plt Count 218 (150-450) k/uL MPV 8.3 Neutrophils % 59 % Lymphocytes % 22 % Monocytes % 14 % Eosinophils % 1 % Basophils % 1 % Neutrophils # 2.3 (1.3-7.7) k/uL Lymphocytes # 0.8 L (1.0-4.8) k/uL Monocytes # 0.5 (0-1.0) k/uL Eosinophils # 0.0 (0-0.7) k/uL Basophils # 0.0 (0-0.2) k/uL Sodium (137-145) mmol/L Potassium (3.5-5.1) mmol/L Chloride (98-107) mmol/L Carbon Dioxide (22-30) mmol/L Anion Gap mmol/L BUN (7-17) mg/dL Creatinine (0.52-1.04) mg/dL Est GFR (CKD-EPI)AfAm (>60 ml/min/1.73 sqM) Est GFR (CKD-EPI)NonAf (>60 ml/min/1.73 sqM) Glucose (74-99) mg/dL Calcium (8.4-10.2) mg/dL Coronavirus (PCR) Detected A (Not Detectd) Influenza Type A RNA Not Detected (Not Detectd) Influenza Type B (PCR) Not Detected (Not Detectd) 12/06/22 Range/Units 01:01 WBC (3.8-10.6) k/uL RBC (3.80-5.40) m/uL Hgb (11.4-16.0) gm/dL Hct (34.0-46.0) % MCV (80.0-100.0) fL MCH (25.0-35.0) pg MCHC (31.0-37.0) g/dL RDW (11.5-15.5) % Plt Count (150-450) k/uL MPV Neutrophils % % Lymphocytes % % Monocytes % % Eosinophils % % Basophils % % Neutrophils # (1.3-7.7) k/uL Lymphocytes # (1.0-4.8) k/uL Monocytes # (0-1.0) k/uL Eosinophils # (0-0.7) k/uL Basophils # (0-0.2) k/uL Sodium 134 L (137-145) mmol/L Potassium 4.0 (3.5-5.1) mmol/L Chloride 104 (98-107) mmol/L Carbon Dioxide 24 (22-30) mmol/L Anion Gap 6 mmol/L BUN 13 (7-17) mg/dL Creatinine 0.66 (0.52-1.04) mg/dL Est GFR (CKD-EPI)AfAm >90 (>60 ml/min/1.73 sqM) Est GFR (CKD-EPI)NonAf >90 (>60 ml/min/1.73 sqM) Glucose 89 (74-99) mg/dL Calcium 8.8 (8.4-10.2) mg/dL Coronavirus (PCR) (Not Detectd) Influenza Type A RNA (Not Detectd) Influenza Type B (PCR) (Not Detectd) Disposition Clinical Impression: COVID-19, Chronic anemia Disposition: HOME SELF-CARE Condition: Good Instructions (If sedation given, give patient instructions): COVID-19 (Coronavirus Disease 2019) (ED) Additional Instructions: SELF QUARANTINE DISCHARGE: As you are at risk for symptoms due to coronavirus, please stay home and stay away from others as much as possible. Please maintain social distance of 6 feet if possible. You should not return to work until at least 3 days (72 hours) have passed since recovery of symptoms. This defined as resolution of fever without the use of fever reducing medicines and improvement in respiratory symptoms (e.g,, cough, shortness of breath) Isolation can end at least 5 days after symptom onset and after fever ends for 24 hours (without the use of fever-reducing medication) and symptoms are improving, if these people can continue to properly wear a well-fitted mask around others for 5 more days after the 5-day isolation period. If you're still having symptoms at the end of 5 day period, isolate for an additional 5 days. More information about what to do if you are sick can be found on the CDC website at https://www.cdc.gov/coronavirus/2019-ncov/dz-lki-txx-sick/ffspi-hbgv-kkva.html Expect the symptoms to last for 7-14 days from onset. Use acetaminophen (Tylenol) as needed for discomfort. You can take a maximum of 1 gram every 6 hours for discomfort, with your total dose in 24 hours not exceeding 4 grams. Be sure to maintain hydration. Drink continuous water and/or items high in vitamin C, such as orange juice and/or lemonade. Unless you have high blood pressure, you may consider Sudafed (which is [id number]) for nasal congestion. I would suggest that a short acting Sudafed rather than the 24 hour Sudafed. For a cough you may take Mucinex or Robitussin. Also consider the use of Vicks Vapor Rub or your chest when you sleep. Use a humidifier that is cleaned frequently, in the bedroom at night. For Nausea /Vomiting/Diarrhea associated with your Illness: o Small frequent sips of room temperature liquids. o Diet: [place] Foods - If you are still experiencing discomfort and/or nausea please slowly advancing your diet using the BRAT Diet = bananas, rice, apples/apple sauce, toast. o With diarrhea avoid any dairy for 48 hours after symptoms resolved. o Continue with activity as tolerated. If your symptoms do get worse and you believe that the upper respiratory infection has developed into something else, such as pneumonia or severe dehydration, please return to the emergency department or follow-up with your primary care. But expect to be symptomatic for the days as indicated above Is patient prescribed a controlled substance at d/c from ED?: No Referrals: Nonstaff,Physician [Primary Care Provider] - 1-2 days Time of Disposition: 01:56
[2022-07-23 01:34] LABS: Basophils % (A) 1 %; Eosinophils % (A) 1 %; HCT 31.4 % (34.0-46.0); HGB 10.4 gm/dL (11.4-16.0); Lymphocytes # (A) 0.8 k/uL (1.0-4.8); Lymphocytes % (A) 22 %; MCH 27.7 pg (25.0-35.0); MCHC 33.3 g/dL (31.0-37.0); MCV 83.2 fL (80.0-100.0); Mean Platelet Volume 8.3; Monocytes # (A) 0.5 k/uL (0-1.0); Monocytes % (A) 14 %; Neutrophils # (A) 2.3 k/uL (1.3-7.7); Neutrophils % (A) 59 %; Platelet Count 218 k/uL (150-450); RBC 3.77 m/uL (3.80-5.40); RDW 14.7 % (11.5-15.5); WBC 3.9 k/uL (3.8-10.6)
[2022-07-23 01:38] LABS: African American GFR (CKD) >90 (>60 ml/min/1.73 sqM); Anion Gap 6 mmol/L; Blood Urea Nitrogen 13 mg/dL (7-17); Calcium 8.8 mg/dL (8.4-10.2); Carbon Dioxide 24 mmol/L (22-30); Chloride 104 mmol/L (98-107); Glucose 89 mg/dL (74-99); Non-African American GFR(CKD) >90 (>60 ml/min/1.73 sqM); Sodium 134 mmol/L (137-145)
[2022-07-23 02:08] VITALS: BP 136/87; PULSE 92; RESP 16; TEMP 99.9
== END 2022-07-23 02:16 | disposition home or self-care (01) ==
LOC: EC 22:13
DX: U07.1 COVID-19 (principal); D64.9 Anemia, unspecified; K21.9 Gastro-esophageal reflux disease without esophagitis; F41.9 Anxiety disorder, unspecified; F32.A Depression, unspecified; Z79.899 Other long term (current) drug therapy
CPT/HCPCS: 36415; 80048; 85025; 87502; 87635; 99284

== ENCOUNTER 2023-04-15 14:47 | Emergency (ER) | payer OTHER ==
[2023-04-15 15:01] VITALS: RESP 18; TEMP 98.2
--- NOTE | 2023-04-15 15:02 | ED ---
General Adult HPI - General Source: patient, RN notes reviewed Mode of arrival: ambulatory Limitations: no limitations <Casey Navarrete - Last Filed: 04/15/23 15:00> - General Source: patient, RN notes reviewed Mode of arrival: ambulatory Limitations: no limitations - History of Present Illness MD Complaint: Abdominal pain <Mikala De Leon - Last Filed: 04/15/23 22:06> - General Chief complaint: Abdominal Pain Stated complaint: abd and back pain Time Seen by Provider: 04/15/23 15:01 - History of Present Illness Initial comments: 47 show female presents emergency Department chief complaint of left-sided abdominal, flank pain. Patient states that she has been seen at Hospital from urgent care and with [facility] has been told that she has ovarian cyst, uterine fibroid, uterine inflammation she is scheduled for a biopsy and repeat ultrasound in May. She states she cannot tolerate the pain any longer. (Casey Navarrete) When I went to evaluate the patient, states that she had been taking [place], 7.5 mg for management of her pain, however she is now out of this and it was not particularly effective. Her PEARL STRINGER is Dr. Salas. She is upset with how slow things are moving and is hoping to have something done quicker. She did recently have a CT scan as well, demonstrating the uterine fibroids. Pain is in the center of the lower abdomen and lower back without localization to any particular side. (Mikala De Leon) - Related Data Home Medications Medication Instructions Recorded Confirmed DULoxetine HCL [Cymbalta] 60 mg PO DAILY 06/26/15 02/16/18 Omeprazole [PriLOSEC] 20 mg PO DAILY 12/29/17 02/16/18 Ondansetron Odt [Zofran ODT] 4 mg PO BID PRN 12/29/17 02/16/18 traMADol HCl [Ultram] 50 mg PO TID PRN 12/29/17 02/16/18 Previous Rx's Medication Instructions Recorded Ketorolac [Toradol] 10 mg PO Q6HR PRN #15 tab 04/15/23 Lidocaine 5% Patch [Lidoderm 5% 1 patch TOPICAL DAILY PRN #30 patch 04/15/23 Patch] oxyCODONE-APAP 7.5-325MG [Percocet 1 tab PO Q6HR PRN 3 Days #12 tab 04/15/23 7.5-325 mg] Allergies Allergy/AdvReac Type Severity Reaction Status Date / Time No Known Allergies Allergy Verified 04/15/23 15:01 Review of Systems ROS Other: All systems not noted in ROS Statement are negative. <RosalbaCasey Hilario - Last Filed: 04/15/23 15:00> ROS Other: All systems not noted in ROS Statement are negative. <Mikala De Leon - Last Filed: 04/15/23 22:06> ROS Statement: Those systems with pertinent positive or pertinent negative responses have been documented in the HPI. Past Medical History Past Medical History: GERD/Reflux Additional Past Medical History / Comment(s): mennorghia, iron deficiency, STATES CHRONIC PAIN History of Any Multi-Drug Resistant Organisms: None Reported Past Surgical History: Section Additional Past Surgical History / Comment(s): kidney stone removed Past Anesthesia/Blood Transfusion Reactions: No Reported Reaction Additional Past Anesthesia/Blood Transfusion Reaction / Comment(s): BLOOD TRANSFUSION WITH NO REACTION Past Psychological History: Anxiety, Depression Past Alcohol Use History: None Reported Past Drug Use History: None Reported - Past Family History Mother Family Medical History: Deep Vein Thrombosis (DVT) <Casey Navarrete - Last Filed: 04/15/23 15:00> General Exam <Casey Navarrete - Last Filed: 04/15/23 15:00> Limitations: no limitations General appearance: alert, in no apparent distress Head exam: Present: atraumatic, normocephalic, normal inspection Respiratory exam: Present: normal lung sounds bilaterally. Absent: respiratory distress, wheezes, rales, rhonchi, stridor Cardiovascular Exam: Present: regular rate, normal rhythm, normal heart sounds. Absent: systolic murmur, diastolic murmur, rubs, gallop, clicks GI/Abdominal exam: Present: soft, tenderness (suprapubic and lower abdominal area), normal bowel sounds. Absent: distended, guarding, rebound, rigid Neurological exam: Present: alert, oriented X3, CN II-XII intact Psychiatric exam: Present: normal affect, normal mood Skin exam: Present: warm, dry, intact, normal color. Absent: rash <Mikala De Leon - Last Filed: 04/15/23 22:06> - General Exam Comments Initial Comments: Visual Physical Exam Vital signs reviewed General: Well-appearing, nontoxic, no acute distress. Head: Normocephalic, atraumatic Eyes: PERRLA, EOMI ENT: Airway patent Chest: Nonlabored breathing Skin: No visual rash, normal skin tone Neuro: Alert and oriented 3 Musculoskeletal: No gross abnormalities (Casey Navarrete) Course Vital Signs 04/15/23 04/15/23 04/15/23 14:58 19:01 21:35 Temperature 98.2 F 98.2 F 98.2 F Pulse Rate 89 80 82 Respiratory 18 18 18 Rate Blood Pressure 111/71 116/68 137/81 O2 Sat by Pulse 100 100 100 Oximetry Medical Decision Making <Casey Navarrete - Last Filed: 04/15/23 15:00> - Lab Data Result diagrams: 04/15/23 15:24 04/15/23 15:24 - Radiology Data Radiology results: report reviewed, image reviewed <Mikala De Leon - Last Filed: 04/15/23 22:06> - Medical Decision Making I performed a quick note portion of this chart signed Casey Navarrete PA-C (Casey Navarrete) This is a 47-year-old female who presents to the emergency department for lower abdominal pain. Was pt. sent in by a medical professional or institution? @ -No Did you speak to anyone other than the patient for history? @ -No Did you review nursing and triage notes? @ -Yes, and I agree, it is accurate with regards to the patient's symptoms. Were old charts reviewed? @ -No Differential Diagnosis? @ -Differential Abdominal Pain Women: Appendicitis, Cholecystitis, diverticulosis, ischemic bowel, pancreatitis, hepatitis, UTI, gastroenteritis, AAA, incarcerated hernia, bowel obstruction, constipation, inflammatory bowel, hepatitis, peptic ulcer disease, splenic infarction, perforated viscus, vulvitis, ovarian torsion, PID, kidney stone, placenta abruption, this is not meant to be an all-inclusive list EKG interpreted by me (3pts min.)? @ -Not obtained X-rays interpreted by me (1pt min.)? @ -Not obtained CT interpreted by me (1pt min.)? @ -Not obtained U/S interpreted by me (1pt. min.)? @ -Not interpreted by me What testing was considered but not performed? (CT, X-rays, U/S, labs)? Why? @ -None What meds were considered but not given? Why? @ -None Did you discuss the management of the patient with other professionals? @ -No Did you reconcile home meds? @ -No Was smoking cessation discussed for >3mins.? @ -No Was critical care preformed (if so, how long)? @ -No Were there social determinants of health that impacted care today? How? (Homelessness, low income, unemployed, alcoholism, drug addiction, transportation, low edu. Level, literacy, decrease access to med. care, custodial, rehab)? @ -No Was there de-escalation of care discussed even if they declined? (Discuss DNR or withdrawal of care, Hospice)? @ -No What co-morbidities impacted this encounter? (DM, HTN, Smoking, COPD, CAD, Cancer, CVA, Hep., AIDS, mental health diagnosis, sleep apnea, morbid obesity)? @ -None Was patient admitted / discharged? @ -Discharged. Lab work obtained revealing a slightly low hemoglobin, consistent with the patient's known history of anemia. Lab work was otherwise nonactionable. Urinalysis negative for signs of infection. Transvaginal ultrasound obtained revealing probable leiomyomas, however other etiologies cannot be excluded. Findings reviewed with the patient, who is aware of these results and states that this has been consistent with prior imaging. Advised that there is not an urgent indication to admit her to have this done sooner, and we will have to continue managing her symptoms on an outpatient basis, until her [facility]INGER can schedule her for the biopsy. Her pain was controlled in the emergency department, and she was given a prescription for Toradol, oxycodone, and lidocaine patches with dosing instructions reviewed. Advised she take the oxycodone sparingly when her pain is the most severe and avoid driving or operating machinery when taking it. Patient is instructed to take the Toradol with Tylenol if needed and avoid any other tisl-[id number]-vjyedjk anti-inflammatories such as ibuprofen with the Toradol. Undiagnosed new problem with uncertain prognosis? @ -None Drug Therapy requiring intensive monitoring for toxicity (Heparin, Nitro, Insulin, Cardizem)? @ -None Were any procedures done? @ -None Diagnosis/symptom? @ -Pelvic pain, uterine fibroid Acute, or Chronic, or Acute on Chronic? @ -Acute Uncomplicated (without systemic symptoms) or Complicated (systemic symptoms)? @ -Uncomplicated Side effects of treatment? @ -None Exacerbation, Progression, or Severe Exacerbation] @ -Not applicable Poses a threat to life or bodily function? @ -No Return precautions reviewed in depth, the patient is instructed to return to the emergency department with any new, worsening, or concerning symptoms. Patient verbalized understanding. This case was discussed in detail with the attending ED physician, Dr. Freeman. Presentation, findings, and treatment plan discussed in detail as well. (Mikala De Leon) - Lab Data Lab Results 04/15/23 04/15/23 04/15/23 Range/Units 15:24 15:24 15:24 WBC 6.3 (3.8-10.6) k/uL RBC 3.84 (3.80-5.40) m/uL Hgb 9.0 L (11.4-16.0) gm/dL Hct 29.6 L (34.0-46.0) % MCV 77.0 L (80.0-100.0) fL MCH 23.5 L (25.0-35.0) pg MCHC 30.5 L (31.0-37.0) g/dL RDW 19.6 H (11.5-15.5) % Plt Count 255 (150-450) k/uL MPV 7.5 Neutrophils % 73 % Lymphocytes % 18 % Monocytes % 5 % Eosinophils % 2 % Basophils % 0 % Neutrophils # 4.6 (1.3-7.7) k/uL Lymphocytes # 1.1 (1.0-4.8) k/uL Monocytes # 0.3 (0-1.0) k/uL Eosinophils # 0.1 (0-0.7) k/uL Basophils # 0.0 (0-0.2) k/uL Hypochromasia Marked Anisocytosis Slight Microcytosis Moderate Sodium 136 L (137-145) mmol/L Potassium 4.6 (3.5-5.1) mmol/L Chloride 106 (98-107) mmol/L Carbon Dioxide 22 (22-30) mmol/L Anion Gap 8 mmol/L BUN 19 H (7-17) mg/dL Creatinine 0.71 (0.52-1.04) mg/dL Est GFR (CKD-EPI)AfAm >90 (>60 ml/min/1.73 sqM) Est GFR (CKD-EPI)NonAf >90 (>60 ml/min/1.73 sqM) Glucose 98 (74-99) mg/dL Calcium 8.9 (8.4-10.2) mg/dL Total Bilirubin 0.7 (0.2-1.3) mg/dL AST 30 (14-36) U/L ALT 25 (4-34) U/L Alkaline Phosphatase 64 (38-126) U/L Total Protein 7.0 (6.3-8.2) g/dL Albumin 4.1 (3.5-5.0) g/dL Urine Color Light Yellow Urine Appearance Cloudy H (Clear) Urine pH 5.5 (5.0-8.0) Ur Specific [place] 1.024 (1.001-1.035) Urine Protein Trace H (Negative) Urine Glucose (UA) Negative (Negative) Urine Ketones Negative (Negative) Urine Blood Moderate H (Negative) Urine Nitrite Negative (Negative) Urine Bilirubin Negative (Negative) Urine Urobilinogen <2.0 (<2.0) mg/dL Ur Leukocyte Esterase Negative (Negative) Urine RBC 1 (0-5) /hpf Urine WBC 1 (0-5) /hpf Ur Squamous Epith Cells 13 H (0-4) /hpf Urine Mucus Rare H (None) /hpf Disposition <Casey Navarrete - Last Filed: 04/15/23 15:00> Is patient prescribed a controlled substance at d/c from ED?: Yes When asked, does pt state using other controlled substances?: No If prescribed controlled substance>3 days was MAPS reviewed?: Prescribed <3 Days <Mikala De Leon - Last Filed: 04/15/23 22:06> Clinical Impression: Uterine fibroid, Pelvic pain, Lower back pain Disposition: HOME SELF-CARE Instructions (If sedation given, give patient instructions): Pelvic Pain in Women (ED) Additional Instructions: Return to the emergency department with any new, worsening, or concerning symptoms. Alternate with Toradol and Tylenol as needed for pain relief. If you choose to take the Toradol, do not take any other anti-inflammatories such as ibuprofen, take one or the other. You can apply up to 3 lidocaine patches at a time each day. Take the oxycodone sparingly when your pain is the most severe and be aware that it may make you drowsy. You should also avoid driving or operating machinery when taking them. Follow up with your primary care provider in 1-2 days. Prescriptions: Lidocaine 5% Patch [Lidoderm 5% Patch] 1 patch TOPICAL DAILY PRN #30 patch PRN Reason: Pain oxyCODONE-APAP 7.5-325MG [Percocet 7.5-325 mg] 1 tab PO Q6HR PRN 3 Days #12 tab PRN Reason: Pain Ketorolac [Toradol] 10 mg PO Q6HR PRN #15 tab PRN Reason: Pain Referrals: Makrus Gilbert MD [Primary Care Provider] - 1-2 days
[2023-04-15 16:14] LABS: Anisocytosis Slight; Basophils % (A) 0 %; Eosinophils # (A) 0.1 k/uL (0-0.7); Eosinophils % (A) 2 %; HCT 29.6 % (34.0-46.0); Hypochromasia Marked; Lymphocytes # (A) 1.1 k/uL (1.0-4.8); Lymphocytes % (A) 18 %; MCH 23.5 pg (25.0-35.0); MCHC 30.5 g/dL (31.0-37.0); Mean Platelet Volume 7.5; Microcytosis Moderate; Monocytes # (A) 0.3 k/uL (0-1.0); Monocytes % (A) 5 %; Neutrophils # (A) 4.6 k/uL (1.3-7.7); Neutrophils % (A) 73 %; Platelet Count 255 k/uL (150-450); RBC 3.84 m/uL (3.80-5.40); RDW 19.6 % (11.5-15.5); WBC 6.3 k/uL (3.8-10.6)
[2023-04-15 16:34] LABS: ALT 25 U/L (4-34); AST 30 U/L (14-36); African American GFR (CKD) >90 (>60 ml/min/1.73 sqM); Albumin 4.1 g/dL (3.5-5.0); Alkaline Phosphatase 64 U/L (38-126); Anion Gap 8 mmol/L; Blood Urea Nitrogen 19 mg/dL (7-17); Calcium 8.9 mg/dL (8.4-10.2); Carbon Dioxide 22 mmol/L (22-30); Chloride 106 mmol/L (98-107); Glucose 98 mg/dL (74-99); Non-African American GFR(CKD) >90 (>60 ml/min/1.73 sqM); Potassium 4.6 mmol/L (3.5-5.1); Sodium 136 mmol/L (137-145); Total Bilirubin 0.7 mg/dL (0.2-1.3)
[2023-04-15 16:45] LABS: Appearance,Urine Cloudy (Clear); Bilirubin,Urine Negative (Negative); Blood,Urine Moderate (Negative); Color,Urine Light Yellow; Glucose,Urine (UA) Negative (Negative); Ketones,Urine Negative (Negative); Leukocyte Esterase,Urine Negative (Negative); Mucus,Urine Rare /hpf; Nitrite,Urine Negative (Negative); PH, Urine 5.5 (5.0-8.0); Protein,Urine Trace (Negative); RBC,Urine 1 /hpf (0-5); Specific Gravity,Urine 1.024 (1.001-1.035); Squamous Epithelial Cell,Urine 13 /hpf (0-4); Urobilinogen,Urine <2.0 mg/dL (<2.0); WBC,Urine 1 /hpf (0-5)
--- NOTE | 2023-04-15 18:47 | US ---
EXAMINATION TYPE: US transvaginal DATE OF EXAM: 04/15/2023 COMPARISON: 12/30/17 CLINICAL INDICATION: Female, 47 years old with history of pain; pain x 1-2 months TECHNIQUE: Transvaginal (TV). Date of LMP: 03/31/23 EXAM MEASUREMENTS: Uterus: 9.3 x 8.0 x 7.9 cm Endometrial Stripe: 1.57 cm Right Ovary: 2.8 x 1.6 x 1.8 cm Left Ovary: 4.5 x 3.8 x 4.4 cm 1. Uterus: Anteflexed Heterogeneous. Fibroid measuring 8.6 x 7.3 x 6.7cm 2. Endometrium: There does appear to be fluid inside 3. Right Ovary: small anechoic area measuring 1.1 x 1.1 x 0.8cm 4. Left Ovary: anechoic area seen measuring 3.1 x 3.9 x 2.6cm Spectral, color and waveform doppler imaging shows good arterial and venous flow within the ovaries ; there is no evidence for ovarian torsion. 5. Bilateral Adnexa: wnl 6. Posterior cul-de-sac: wnl IMPRESSION: 1. Probable leiomyomatous change of the uterus. Lesions of other etiology not excluded. 2. Probable functional ovarian cysts.
[2023-04-15] MEDS ORDERED: KETOROLAC 15 MG/ML 1 ML VIAL IVP STA (19:12)
[2023-04-15] MEDS ORDERED: MORPHINE SULFATE 4 MG/ML SYRINGE IVP STA (19:12)
[2023-04-15] MEDS ORDERED: HYDROmorphone 1 MG/ML 1 ML SYRINGE IVP STA (20:14)
[2023-04-15] MEDS ORDERED: LIDOCAINE 5% PATCH TOPICAL ONE (20:14)
[2023-04-15] MEDS ORDERED: HYDROmorphone 0.5 MG/0.5 ML SYRINGE IVP STA (21:06)
[2023-04-15] MEDS ORDERED: oxyCODONE-APAP 7.5-325MG 1 EACH TAB PO STA (21:06)
[2023-04-15 21:38] VITALS: BP 137/81; PULSE 82
== END 2023-04-15 21:35 | disposition home or self-care (01) ==
LOC: EC 14:47
DX: D25.9 Leiomyoma of uterus, unspecified (principal); M54.50 Low back pain, unspecified; K21.9 Gastro-esophageal reflux disease without esophagitis; F32.A Depression, unspecified; F41.9 Anxiety disorder, unspecified; Z79.899 Other long term (current) drug therapy
CPT/HCPCS: 36415; 80053; 85025; 81001; 93976; 76830; 99284; 96374; 96375 ×2; J2270; J1885; J1170

== ENCOUNTER 2023-08-11 18:50 | Emergency (ER) | payer OTHER ==
[2023-08-11 19:03] VITALS: RESP 16; TEMP 97.7
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
[2023-08-11] MEDS ORDERED: DULoxetine HCL 60 MG CAPSULE.DR PO ONE (23:25)
[2023-08-11 23:54] VITALS: BP 115/74; PULSE 83
== END 2023-08-12 00:43 | disposition home or self-care (01) ==
LOC: EC 18:50
DX: F41.1 Generalized anxiety disorder (principal); F17.200 Nicotine dependence, unspecified, uncomplicated; F32.A Depression, unspecified; K21.9 Gastro-esophageal reflux disease without esophagitis; Z79.899 Other long term (current) drug therapy
CPT/HCPCS: 99282; 99406

== ENCOUNTER → 2024-06-23 | Outpatient (CLI) | payer OTHER ==
--- NOTE | 2024-07-01 11:05 | MM ---
Reason for Exam: Screening (asymptomatic). Patient History: Menarche at age 14. First Full-Term at age 20. Hysterectomy at age 48. Last menstrual period: Risk Values: Ericka 5 year model risk: 0.6%. NCI Lifetime model risk: 6.8%. Prior Study Comparison: No prior studies available for comparison. Tissue Density: There are scattered areas of fibroglandular density. Findings: Analyzed By CAD. Right breast: There is no suspicious group of microcalcifications or new suspicious mass. Left breast: Asymmetry cc view posterior depth posterior nipple line 13 cm in the nipple and laterally 13 cm the nipple. Asymmetry MLO view upper aspect. Overall Assessment: Incomplete: need additional imaging evaluation, BI-RAD 0 Management: Diagnostic Mammogram of the left breast. [facility] will attempt to contact patient to return for supplemental views and ultrasound if indicated. Patient should continue monthly self-breast exams. A clinical breast exam by your physician is recommended on an annual basis. This exam should not preclude additional follow-up of suspicious palpable abnormalities. Note on Ericka scores and lifetime risk: 1. A Ericka score greater than 3% is considered moderate risk. If this is the case, consider specialist referral to assess eligibility for a risk reducing agent. 2. If overall lifetime risk for the development of breast cancer is 20% or higher, the patient may qualify for future screening with alternating mammogram and breast MRI. [facility], , 07/01/2024 11:02 AM. Electronically signed and approved by: Joe Espitia DO
== END | disposition home or self-care (01) ==
LOC: RADMAMWWP 15:34
PROVIDERS: ATTEND Family Medicine
DX: Z12.31 Encounter for screening mammogram for malignant neoplasm of breast (principal); R92.323 Mammographic fibroglandular density, bilateral breasts
CPT/HCPCS: 77067

== ENCOUNTER → 2024-07-13 | Outpatient (CLI) | payer OTHER ==
--- NOTE | 2024-07-13 15:38 | MM ---
Reason for Exam: Additional evaluation requested from abnormal screening. Last screening mammogram was performed less than 1 month ago. Patient History: Menarche at age 14. First Full-Term at age 20. Hysterectomy at age 48. Perimenopausal. Patient has history of breast feeding. Risk Values: Ericka 5 year model risk: 0.6%. NCI Lifetime model risk: 6.8%. Prior Study Comparison: 06/23/2024 Bilateral MG screening mammo w CAD, [facility]. Tissue Density: Left: There are scattered areas of fibroglandular density. Findings: Analyzed By CAD. No persisting mass identified in the posterior outer aspect of the left breast on spot compression 3-D images. Findings suspected to represent a global asymmetry. Stability can't be confirmed and a 6 month follow-up. The questioned asymmetric density central posterior left cc view does not persist. Findings compatible with superimposition shadow. Overall Assessment: Probably benign, BI-RAD 3 Management: Diagnostic Mammogram of the left breast in 6 months. Results were given to the patient verbally at the time of exam. Patient should continue monthly self-breast exams. A clinical breast exam by your physician is recommended on an annual basis. This exam should not preclude additional follow-up of suspicious palpable abnormalities. Note on Ericka scores and lifetime risk: 1. A Ericka score greater than 3% is considered moderate risk. If this is the case, consider specialist referral to assess eligibility for a risk reducing agent. 2. If overall lifetime risk for the development of breast cancer is 20% or higher, the patient may qualify for future screening with alternating mammogram and breast MRI. [facility], , 07/13/2024 3:34 PM. Electronically signed and approved by: Caleb Kerns M.D. Radiologist
== END | disposition home or self-care (01) ==
LOC: RADMAMWWP 09:50
PROVIDERS: ATTEND Family Medicine
DX: R92.8 Other abnormal and inconclusive findings on diagnostic imaging of breast (principal); R92.323 Mammographic fibroglandular density, bilateral breasts
CPT/HCPCS: 77065; G0279; 77061